=== PATIENT | male | born 1950 | race Caucasian/White ===

== ENCOUNTER 2018-04-03 13:32 | Observation (INO) | payer MEDICARE ==
[2018-04-03 14:03] LABS: #Eosinphils 0.1 thou/uL (0.0-0.7); #Lymphocytes 1.2 thou/uL (1.20-3.40); #Monocytes 0.7 thou/uL (0.11-0.59); #Neutrophils 6.3 thou/uL (1.40-6.50); %Basophils 0.3 % (0.0-1.0); %Eosinophils 0.9 % (0.0-10.0); %Lymphocytes 14.7 % (21.0-51.0); %Monocytes 8.1 % (0.0-10.0); Hemoglobin 17.4 g/dL (14.0-18.0); Mean Corpuscular Hemoglobin 30.9 pg (27.0-31.0); Mean Corpuscular Volume 90.8 fL (78.0-98.0); Mean Platelet Volume 8.1 fL (7.4-10.4); Platelet Count 236 thou/uL (130-400); RBC Distribution Width 11.7 % (11.5-14.5); Red Blood Cell (RBC) Count 5.64 mill/uL (4.70-6.10); White Blood Cell (WBC) Count 8.3 thou/uL (4.8-10.8)
--- NOTE | 2018-04-03 14:13 | RAD ---
PORTABLE CHEST 1 VIEW: Date: 04/03/18 Time: 1357 hours HISTORY: Irregular heart rate, new onset atrial fibrillation, and shortness of breath. FINDINGS: The heart size is normal. The lungs are expanded without focal areas of consolidation, pneumothorax, [place] pulmonary edema, or pleural effusions. IMPRESSION: No radiographic evidence of acute cardiopulmonary process. POS: OFF
[2018-04-03 14:26] LABS: ALT (SGPT) 22 U/L (8-55); AST (SGOT) 18 U/L (5-34); Albumin 4.4 g/dL (3.4-4.8); Alkaline Phosphatase 72 U/L (40-150); Anion Gap 17 mmol/L (10-20); BUN (Urea Nitrogen) 14 mg/dL (8.4-25.7); Bilirubin, Total 1.8 mg/dL (0.2-1.2); CK (CPK) 119 U/L (30-200); Calc. Creatinine Clearance 0 mL/min (70-130); Calcium 9.4 mg/dL (7.8-10.44); Carbon Dioxide 22 mmol/L (23-31); Chloride 105 mmol/L (98-107); Estimated GFR-MDRD 61; Globulin 2.9 g/dL (2.4-3.5); Glucose 98 mg/dL (80-115); Potassium 3.9 mmol/L (3.5-5.1); Protein, Total 7.3 g/dL (5.8-8.1); Sodium 140 mmol/L (136-145)
[2018-04-03] MEDS ORDERED: Enoxaparin Sodium 100 MG/ML SYRINGE ONE (15:56)
[2018-04-03] MEDS ORDERED: Enoxaparin Sodium 120 MG/0.8 ML SYRINGE SC SCH (16:15)
[2018-04-03] MEDS ORDERED: Ondansetron ODT 4 MG TAB PO PRN (17:42)
[2018-04-03] MEDS ORDERED: Ondansetron PF 4 MG/2 ML Vial IVP PRN (17:42)
[2018-04-03] MEDS ORDERED: Acetaminophen 325 MG TAB PO PRN (17:42)
[2018-04-03] MEDS ORDERED: Zolpidem Tartrate 5 MG TAB PO PRN (17:42)
[2018-04-03 19:16] VITALS: BMI 31.2
[2018-04-03 19:34] LABS: Troponin I Less than 0.010 ng/mL (< 0.028)
[2018-04-03] MEDS: Metoprolol Tartrate 25 MG TAB PO SCH (20:50)
[2018-04-03] MEDS: Apixaban 5 MG TAB PO SCH (20:50)
[2018-04-03] MEDS ORDERED: Flecainide 50 MG TAB PO SCH (21:15)
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
[2018-04-04] MEDS ORDERED: Flecainide 50 MG TAB PO SCH (09:00)
[2018-04-04] MEDS ORDERED: PROPOFOL 20 ML ONE (09:46)
[2018-04-04] MEDS ORDERED: PROPOFOL 200 MG/20 ML VIAL ONE (10:00)
[2018-04-04] MEDS: Metoprolol Tartrate 25 MG TAB PO SCH (11:51)
[2018-04-04] MEDS: Apixaban 5 MG TAB PO SCH (11:51)
--- NOTE | 2018-04-04 12:23 | PRG ---
DATE OF SERVICE: 04/04/2018 SUBJECTIVE: Mr. Conway is doing well. He is still in atrial fib. He verbalizes no complaints. OBJECTIVE: VITAL SIGNS: Temperature 98.1, blood pressure 103/85. LUNGS: Clear. HEART: Reveals an irregularly irregular rhythm. No murmurs, gallops, or rubs. studies were all negative. IMPRESSION: Atrial fibrillation. PLAN: The plan is to cardiovert him today with Dr. Mendes. If he is successful, discharge later. Job ID: [id number]
[2018-04-04 12:59] VITALS: TEMP 98
[2018-04-04 14:24] VITALS: BP 100/80
--- NOTE | 2018-04-05 21:21 | ECHO ---
DATE OF SERVICE: 04/04/18 PREPROCEDURE DIAGNOSIS: Atrial fibrillation. The Anesthesiology department provided with sedation for the patient. Please see their notes for det ails. After adequate sedation was achieved, transesophageal probe was inserted into the mouth and into the esophagus without issues. Multiplanar views were then obtained. Left ventricle appears to be normal in size with normal wall thickness. Systolic function appears to be normal with estimated EF at 50-55% with no regional wall motion abnormalities. Left atrium is dilated. Left atrial appendage is a large appendage. There is a small flailing mass within the appendage consi stent with a small thrombus. Normal left atrial appendage velocities. Right atrium is mildly dilated. The right ventricle is normal size with normal systolic function. Aortic valve is structurally normal. No stenosis. There is trace aortic insufficiency. Pulmonary valve is structurally normal. No stenosis or regurgitation. Mitral valve is structurally normal. There is moderate mitral regurgitation. Tricuspid valve is structurally normal. There is mild TR. Thoracic aorta is normal caliber with grade I/V atherosclerotic disease. CONCLUSIONS: 1. Normal systolic function, EF at 50-55%. 2. Left atrial enlargement. 3. Trace aortic insufficiency. 4. Moderate mitral regurgitation. 5. Mild tricuspid regurgitation. 6. Left atrial appendage is a large appendage with normal velocities. 7. There is a small flailing mass consistent with a small thrombus.
--- NOTE | 2018-04-09 12:02 | EKG ---
Test Reason : Blood Pressure : / mmHG Vent. Rate : 115 BPM Atrial Rate : 138 BPM P-R Int : 000 ms QRS Dur : 094 ms QT Int : 342 ms P-R-T Axes : 000 -53 041 degrees QTc Int : 473 ms Atrial fibrillation with rapid ventricular response Left axis deviation Inferior infarct , age undetermined Abnormal ECG Confirmed by ANAI MARI D.O. ([id number]), purchase request editor ROHIT MARTÍNEZ ([id number]) on 04/09/2018 12:02:21 PM Referred By: Confirmed By:ANAI MARI D.O.
== END 2018-04-04 14:44 | disposition home or self-care (01) ==
LOC: ERS 13:32 → ERHOLD 15:05 → 2SW 18:44
PROVIDERS: ADMIT Family Medicine; ATTEND Family Medicine
PROC: B24BZZ4 Ultrasonography of Heart with Aorta, Transesophageal (ICD-10-PCS; principal; 2018-04-04)
DX: I48.91 Unspecified atrial fibrillation (principal); I10 Essential (primary) hypertension; I08.1 Rheumatic disorders of both mitral and tricuspid valves; Z79.899 Other long term (current) drug therapy; Z98.890 Other specified postprocedural states
CPT/HCPCS: 71045; 80053; 82550; 84484 ×2; 85025; 90662; 92960; 93005; 93312; 96361; 96372; 96374; 99285; G0008; G0378 ×2; 36415; 90471; J1650; J2704

== ENCOUNTER 2018-05-01 07:33 | Outpatient (CLI) | payer MEDICARE ==
[2018-05-01 09:43] LABS: #Eosinphils 0.1 thou/uL (0.0-0.7); #Lymphocytes 1.3 thou/uL (1.20-3.40); #Monocytes 0.7 thou/uL (0.11-0.59); #Neutrophils 4.5 thou/uL (1.40-6.50); %Basophils 0.5 % (0.0-1.0); %Eosinophils 1.8 % (0.0-10.0); %Lymphocytes 19.3 % (21.0-51.0); %Monocytes 9.9 % (0.0-10.0); %Neutrophils 68.5 % (42.0-75.0); Hemoglobin 16.2 g/dL (14.0-18.0); Mean Corpuscular HGB CONC 34.4 g/dL (32.0-36.0); Mean Corpuscular Hemoglobin 30.9 pg (27.0-31.0); Mean Corpuscular Volume 89.8 fL (78.0-98.0); Mean Platelet Volume 8.1 fL (7.4-10.4); Platelet Count 220 thou/uL (130-400); RBC Distribution Width 11.8 % (11.5-14.5); Red Blood Cell (RBC) Count 5.23 mill/uL (4.70-6.10); White Blood Cell (WBC) Count 6.6 thou/uL (4.8-10.8)
[2018-05-01 09:49] LABS: INR-International Normal Ratio 1.2; Prothrombin Time 14.9 SEC (12.0-14.7)
[2018-05-01 09:50] LABS: PTT 34.2 SEC (22.9-36.1)
[2018-05-01 10:01] LABS: Anion Gap 13 mmol/L (10-20); BUN (Urea Nitrogen) 18 mg/dL (8.4-25.7); Calc. Creatinine Clearance 0 mL/min (70-130); Calcium 9.4 mg/dL (7.8-10.44); Carbon Dioxide 23 mmol/L (23-31); Chloride 107 mmol/L (98-107); Estimated GFR-MDRD 71; Glucose 88 mg/dL (80-115); Potassium 4.3 mmol/L (3.5-5.1); Sodium 139 mmol/L (136-145)
--- NOTE | 2018-05-03 20:48 | EKG ---
Test Reason : Blood Pressure : / mmHG Vent. Rate : 057 BPM Atrial Rate : 228 BPM P-R Int : 000 ms QRS Dur : 100 ms QT Int : 434 ms P-R-T Axes : -77 -37 048 degrees QTc Int : 422 ms Atrial flutter with 4:1 A-V conduction Left axis deviation Inferior infarct , age undetermined Anterior infarct , age undetermined Abnormal ECG When compared with ECG of 03-APR-2018 14:32, Atrial flutter has replaced Atrial fibrillation Anterior infarct is now Present ST elevation now present in Inferior leads Confirmed by David TIMMONS ([id number]) on 05/03/2018 8:47:41 PM Referred By: AVI Confirmed By:David TIMMONS
== END 2018-05-01 07:34 | disposition home or self-care (01) ==
LOC: LABBT 07:33
PROVIDERS: ATTEND Internal Medicine Cardiovascular Disease
DX: Z01.818 Encounter for other preprocedural examination (principal); I48.92 Unspecified atrial flutter
CPT/HCPCS: 80048; 85025; 85610; 85730; 93005; 93010

== ENCOUNTER 2018-05-13 10:23 | Day surgery (SDC) | payer MEDICARE ==
[2018-05-13] MEDS ORDERED: PROPOFOL 40 ML ONE (12:50)
[2018-05-13] MEDS ORDERED: PROPOFOL 200 MG/20 ML VIAL ONE (13:53)
--- NOTE | 2018-05-13 15:33 | RAD ---
CHEST ONE VIEW PORTABLE: Comparison: 04-03-18 History: Cough. FINDINGS: Heart size and mediastinum are within normal limits. The lungs are clear of any infiltrative process. No significant bony findings are seen. IMPRESSION: No active intrathoracic disease. POS: TPC
--- NOTE | 2018-05-13 20:23 | EKG ---
Test Reason : POST TARAH/CARDIOVERSI Blood Pressure : / mmHG Vent. Rate : 062 BPM Atrial Rate : 062 BPM P-R Int : 230 ms QRS Dur : 112 ms QT Int : 450 ms P-R-T Axes : 063 -50 -04 degrees QTc Int : 456 ms Sinus rhythm with 1st degree A-V block Left axis deviation Inferior infarct (cited on or before 01-MAY-2018) Abnormal ECG When compared with ECG of 01-MAY-2018 09:24, Sinus rhythm has replaced Atrial flutter Criteria for Anterior infarct are no longer Present Serial changes of evolving Inferior infarct Present Confirmed by SAMSON KHANNA, DR. Jimenez ([id number]) on 05/13/2018 8:23:04 PM Referred By: AVI Confirmed By:DR. Barbara DAVIES MD
--- NOTE | 2018-05-16 09:43 | OP ---
CARDIOLOGY PROCEDURE NOTE: Date: 05/13/18 PROCEDURE PERFORMED: Cardioversion. SUMMARY: Mr. Conway is a pleasant 68-year-old gentleman who comes to the outpatient area for a TARAH and cardiove rsion. Please see TARAH for further details. After adequate sedation was achieved by the anesthesiology department, one single AICD shock at 150 j oules synchronized was delivered successfully, converting him from atrial flutter into sinus rhythm. The patient tolerated the procedure well. RECOMMENDATIONS: 1. Continue full anticoagulation and flecainide. 2. Follow-up in the office in 1 month. 3. Patient may be discharged home.
--- NOTE | 2018-05-16 09:46 | ECHO ---
CARDIOLOGY PROCEDURE NOTE: Date: 05/13/18 PROCEDURE: Transesophageal echocardiogram. DETAILS: Anesthesiology department provided sedation for the patient. Please see their notes for details. After adequate sedation was achieved, the transesophageal probe was inserted into the mouth and into the esophagus, and multiplanar views were then obtained. FINDINGS: Left ventricle is normal size. Ejection fraction 50-55%. Left atrial appendage is a large appendage, widely patent, with reduced velocities. No evidence of ma ss or thrombus. The previously seen thrombus is no longer seen. CONCLUSIONS: 1. Normal left ventricular systolic function. 2. Large left atrial appendage without any evidence of mass or thrombus. The previously seen thrombu s is not seen.
== END 2018-05-13 16:10 | disposition home or self-care (01) ==
LOC: CCL 10:23
PROVIDERS: ATTEND Internal Medicine Cardiovascular Disease
PROC: 5A2204Z Restoration of Cardiac Rhythm, Single (ICD-10-PCS; principal; 2018-05-13)
PROC: B24BZZ4 Ultrasonography of Heart with Aorta, Transesophageal (ICD-10-PCS; 2018-05-13)
DX: I48.3 Typical atrial flutter (principal); I48.91 Unspecified atrial fibrillation; I10 Essential (primary) hypertension; Z79.01 Long term (current) use of anticoagulants; Z79.899 Other long term (current) drug therapy; Z87.891 Personal history of nicotine dependence
CPT/HCPCS: 71045; 92960; 93005; 93010; 93312; J2704

== ENCOUNTER 2019-11-11 12:45 | Outpatient (CLI) | payer MEDICARE ==
--- NOTE | 2019-11-11 14:34 | CT ---
CTA CHEST WITH CONTRAST: Date: 11/11/2019 Axial tomograms obtained following angio protocol with multiplanar reconstruction and 3D postprocessi ng. INDICATION: Ascending aortic aneurysm. FINDINGS: Thoracic aorta shows no evidence of dissection. Thoracic aortic measurements given below. Sinus of Valsalva: 4.7 cm, increased for age and sex. Sinotubular: 3.2 cm, upper normal for sex. Ascending thoracic aorta: Up to 4.2 cm, mildly aneurysmal. Upper descending thoracic aorta: 2.8 cm, mildly aneurysmal. Lower descending thoracic aorta: 2.8 cm, upper normal. There is an aberrant right subclavian artery noted passing posterior to the esophagus. Pulmonary arteries are opacified and there is no evidence of pulmonary embolus. The lung casper are clear of infiltrate. No effusion. There are chronic lung parenchymal changes. Str anding in the posterior lung bases. No evidence of pulmonary mass or nodule. The mediastinum is unremarkable without adenopathy. There is a mass projecting from the inferior left lobe of the thyroid which extends substernally. Thi s thyroid substernal mass measures up to 3.3 cm AP dimension. This is moderately suspicious. Recommen d further evaluation with ultrasound and consider biopsy. Images through the upper abdomen unremarkable with mild to moderate degenerative changes in the spine . IMPRESSION: 1. Mild aneurysmal dilatation of the ascending thoracic aorta. Aortic measurements are given above. 2. Aberrant right subclavian artery. 3. Mass extending from the inferior left lobe of thyroid which projects substernally is suspicious. Recommend further investigation. 4. Chronic lung parenchymal changes. POS: AH
[2019-11-11] MEDS ORDERED: Iopamidol-370 76% 500 ML 1 ML ONE (15:43)
== END 2019-11-11 12:46 | disposition home or self-care (01) ==
LOC: BICCT 12:45
PROVIDERS: ATTEND Internal Medicine Cardiovascular Disease
DX: I71.2 Thoracic aortic aneurysm, without rupture (principal); I77.810 Thoracic aortic ectasia; E07.9 Disorder of thyroid, unspecified
CPT/HCPCS: 71275; Q9967

== ENCOUNTER 2019-12-19 11:24 | Outpatient (CLI) | payer MEDICARE, OTHER ==
[2019-12-20 12:22] LABS: SARS-CoV-2 MS2 Positive; SARS-CoV-2 N Gene Negative; SARS-CoV-2 S Gene Negative; SARS-CoV-2 by NAA Not Detected (NotDetected); SARS-CoV-2 orf1ab Negative
== END 2019-12-19 11:25 | disposition home or self-care (01) ==
LOC: LABSCS 11:24
PROVIDERS: ATTEND Specialist
DX: E04.1 Nontoxic single thyroid nodule (principal); Z20.828 Contact with and (suspected) exposure to other viral communicable diseases
CPT/HCPCS: 87635; U0003

== ENCOUNTER 2019-12-24 12:37 | Day surgery (SDC) | payer MEDICARE ==
[2019-12-24] MEDS ORDERED: Sodium Bicarbonate 2.5 MEQ/5 ML VIAL ONE (13:04)
[2019-12-24] MEDS ORDERED: Lidocaine 1% PF 5 ML VIAL ONE (13:04)
[2019-12-24 14:44] VITALS: BP 126/84; TEMP 97.7; BMI 30.8
--- NOTE | 2019-12-24 15:13 | ULT ---
Sonographic guided FNA left thyroid lobe mass HISTORY: Thyroid mass. FINDINGS: After explaining the procedure and answering all questions, large heterogeneous mass at the inferior pole of the left thyroid lobe was again visualized. Sterile technique, buffered local anesthesia, sonographic guidance, and a medial approach were used t o carefully advance the tip of a 25-gauge needle into the large mass at the inferior aspect left thyroid lobe. FNA sample was obtained. A total of 4 passes made. Tissue submitted to pathology for processing. Agent tolerated the procedure well and was dismissed in good condition. IMPRESSION : Technically successful sonographic guided FNA left thyroid lobe mass. Pathology is pending.
== END 2019-12-24 13:50 | disposition home or self-care (01) ==
LOC: ULT 12:37
PROVIDERS: ATTEND Specialist
PROC: 0GBG3ZX Excision of Left Thyroid Gland Lobe, Percutaneous Approach, Diagnostic (ICD-10-PCS; principal; 2019-12-24)
DX: E04.1 Nontoxic single thyroid nodule (principal); I10 Essential (primary) hypertension; I48.91 Unspecified atrial fibrillation; Z87.891 Personal history of nicotine dependence; Z79.01 Long term (current) use of anticoagulants; Z79.899 Other long term (current) drug therapy
CPT/HCPCS: 60100; 76942; 88173

== ENCOUNTER 2020-01-09 06:47 | Outpatient (CLI) | payer MEDICARE, OTHER ==
[2020-01-09 10:26] LABS: #Eosinphils 0.1 thou/uL (0.0-0.7); #Lymphocytes 1.3 thou/uL (1.20-3.40); #Monocytes 0.4 thou/uL (0.11-0.59); #Neutrophils 3.1 thou/uL (1.40-6.50); %Basophils 0.2 % (0.0-1.0); %Eosinophils 1.2 % (0.0-10.0); %Lymphocytes 26.5 % (21.0-51.0); %Monocytes 8.2 % (0.0-10.0); %Neutrophils 63.9 % (42.0-75.0); Hemoglobin 15.6 g/dL (14.0-18.0); Mean Corpuscular HGB CONC 33.7 g/dL (32.0-36.0); Mean Corpuscular Hemoglobin 31.3 pg (27.0-31.0); Mean Corpuscular Volume 92.7 fL (78.0-98.0); Mean Platelet Volume 8.7 fL (7.4-10.4); Platelet Count 209 thou/uL (130-400); RBC Distribution Width 11.7 % (11.5-14.5); Red Blood Cell (RBC) Count 4.99 mill/uL (4.70-6.10); White Blood Cell (WBC) Count 4.8 thou/uL (4.8-10.8)
[2020-01-09 11:00] LABS: Anion Gap 17 mmol/L (10-20); BUN (Urea Nitrogen) 17 mg/dL (8.4-25.7); Calc. Creatinine Clearance 0 mL/min (70-130); Calcium 8.7 mg/dL (7.8-10.44); Carbon Dioxide 21 mmol/L (23-31); Chloride 108 mmol/L (98-107); Estimated GFR-MDRD 86; Glucose 90 mg/dL (80-115); Potassium 5.2 mmol/L (3.5-5.1); Sodium 141 mmol/L (136-145)
[2020-01-09 17:49] LABS: SARS-CoV-2 MS2 Positive; SARS-CoV-2 N Gene Negative; SARS-CoV-2 S Gene Negative; SARS-CoV-2 by NAA Not Detected (NotDetected); SARS-CoV-2 orf1ab Negative
== END 2020-01-09 06:48 | disposition home or self-care (01) ==
LOC: LABBT 06:47
PROVIDERS: ATTEND Surgery
DX: Z01.812 Encounter for preprocedural laboratory examination (principal); Z20.828 Contact with and (suspected) exposure to other viral communicable diseases; K40.90 Unilateral inguinal hernia, without obstruction or gangrene, not specified as recurrent; E04.1 Nontoxic single thyroid nodule
CPT/HCPCS: 80048; 85025; U0003; 87635

== ENCOUNTER 2020-01-14 09:57 | Day surgery (SDC) | payer MEDICARE ==
[2020-01-12 10:41] VITALS: BMI 31.4
[2020-01-14] MEDS ORDERED: Bupivacaine/Epinephrine 0.25% 30 ML VIAL ONE (10:33)
[2020-01-14] MEDS ORDERED: Bupivacaine PF 0.5% 30 ML VIAL ONE (10:33)
[2020-01-14] MEDS ORDERED: Fentanyl 100 MCG/2 ML VIAL ONE (10:35)
[2020-01-14] MEDS ORDERED: Famotidine/PF 20 mg/2ml Vial ONE (10:42)
[2020-01-14] MEDS ORDERED: EPHEDRINE 25 MG/5 ML SYRINGE ONE (10:52)
[2020-01-14] MEDS ORDERED: Lidocaine 1% PF 5 ML VIAL ONE (10:52)
[2020-01-14] MEDS ORDERED: Glycopyrrolate 0.2 MG/ML 5 ML SYRINGE ONE (10:52)
[2020-01-14] MEDS ORDERED: Dexamethasone 20 MG/5 ML VIAL ONE (10:52)
[2020-01-14] MEDS ORDERED: PROPOFOL 200 MG/20 ML VIAL ONE (10:52)
[2020-01-14] MEDS ORDERED: Ondansetron PF 4 MG/2 ML Vial ONE (10:52)
--- NOTE | 2020-01-14 15:13 | EKG ---
Test Reason : PREOP Blood Pressure : / mmHG Vent. Rate : 051 BPM Atrial Rate : 051 BPM P-R Int : 244 ms QRS Dur : 104 ms QT Int : 486 ms P-R-T Axes : 022 -44 019 degrees QTc Int : 447 ms Sinus bradycardia with marked sinus arrhythmia with 1st degree A-V block Premature atrial complexes Non-specific intra-ventricular conduction delay Left axis deviation Nonspecific ST abnormality Abnormal ECG Confirmed by PAPO VALENTINE ([id number]) on 01/14/2020 3:12:40 PM Referred By: TERE Confirmed By:PAPO VALENTINE
--- NOTE | 2020-01-15 11:11 | OP ---
DATE OF PROCEDURE: 01/14/2020 PREOPERATIVE DIAGNOSIS: Right inguinal hernia. POSTOPERATIVE DIAGNOSIS: Right inguinal hernia. PROCEDURE PERFORMED: Right inguinal hernia repair with mesh, PHS extended. ANESTHESIA: General. ESTIMATED BLOOD LOSS: Minimal. COMPLICATIONS: None. DESCRIPTION OF PROCEDURE: The patient was taken to the operating room and laid supine on the operating room table. After general anesthetic was obtained, the abdomen and right groin were shaved, prepped, and draped in a sterile fashion. An oblique incision was made above the pubic tubercle and the right lower quadrant. Cautery was used to dissect down through Rasta's to expose the external oblique. External oblique fibers opened along the course of the external ring. The cord structures were mobilized on the pubic tubercle using a Nathalia drain. Dissection superomedially on the cord showed there to be no indirect hernia sac. There was a direct defect that was dissected away from the cord structures laterally. The preperitoneal space was bluntly entered and dissected using a wet unraveled Ray-Loli. The PHS extended mesh was brought into the sterile field. The underlay was placed in the preperitoneal space. The fibers were laid out in the preperitoneal space behind the abdominal wall. The overlay was laid in the inguinal canal. The overlay was cut laterally to incorporate the internal ring. The overlay was sewn distally to the pubic tubercle, medially to the transverse arch, laterally to the shelving edge of inguinal ligament. Additional sutures were used to reapproximate the two edges of cut mesh to the inguinal ligament as well to reform the internal ring. Sutures placed on the transverse arch. The extra mesh was tucked back into the external oblique proximally. The wound was irrigated. Local anesthetic was applied. The wound was closed using 3-0 Vicryl, 4-0 Monocryl, and Dermabond. Tunneled cath for postoperative pain control had been left on top of the mesh, connected to an ON-Q pain pump. The patient was sent to Recovery in stable condition. All instrument counts, needle counts, and lap counts were correct. Job ID: [id number]
== END 2020-01-14 14:04 | disposition home or self-care (01) ==
LOC: SDC 09:57
PROVIDERS: ATTEND Surgery
PROC: 0YU50JZ Supplement Right Inguinal Region with Synthetic Substitute, Open Approach (ICD-10-PCS; principal; 2020-01-14)
DX: K40.90 Unilateral inguinal hernia, without obstruction or gangrene, not specified as recurrent (principal); I48.91 Unspecified atrial fibrillation; I10 Essential (primary) hypertension; Z79.899 Other long term (current) drug therapy
CPT/HCPCS: 49505; 93005; C1781; 93010; J0690; J1100; J2405; J2704; J3010; S0020; S0028

== ENCOUNTER 2020-01-16 11:18 | Outpatient (CLI) | payer MEDICARE, OTHER ==
[2020-01-16 19:48] LABS: SARS-CoV-2 MS2 Positive; SARS-CoV-2 N Gene Negative; SARS-CoV-2 S Gene Negative; SARS-CoV-2 by NAA Not Detected (NotDetected); SARS-CoV-2 orf1ab Negative
== END 2020-01-16 11:19 | disposition home or self-care (01) ==
LOC: LABBT 11:18
PROVIDERS: ATTEND Specialist
DX: Z20.828 Contact with and (suspected) exposure to other viral communicable diseases (principal)
CPT/HCPCS: 87635; U0003

== ENCOUNTER 2020-01-19 12:29 | Day surgery (SDC) | payer MEDICARE ==
[2020-01-16 08:33] VITALS: BMI 30.8
[~2020-01-19 12:29] MED LIST: FLU VACC QS2020-21(65YR UP)/PF 240 MCG/0.7 ML SYRINGE IM ONE
[2020-01-19] MEDS ORDERED: Sodium Bicarbonate 2.5 MEQ/5 ML VIAL ONE (13:09)
[2020-01-19] MEDS ORDERED: Lidocaine 1% PF 5 ML VIAL ONE (13:09)
[2020-01-19 14:29] VITALS: BP 122/80; TEMP 95.6
--- NOTE | 2020-01-19 15:02 | ULT ---
Ultrasound-guided FNA left thyroid lobe mass HISTORY: Left thyroid mass. FINDINGS: After explaining the procedure and answering all questions, the large heterogeneous mass at the inferior pole of the left thyroid lobe was again visualized. Sterile technique, buffered local anesthesia, sonographic guidance, and a lateral approach were used to carefully advance the tip of a 25-gauge needle into the mass. [id number] motion was used to obtain FNA specimen. A total of 8 specimens were obtained and submitted to Dr. Perkins from pathology who confirmed specim en adequacy. Postprocedure imaging shows no evidence of complication. Patient tolerated the procedure well and was dismissed in good condition. IMPRESSION : Technically successful sonographic guided FNA left thyroid lobe mass. Pathology is pending.
== END 2020-01-19 14:15 | disposition home or self-care (01) ==
LOC: ULT 12:29
PROVIDERS: ATTEND Specialist
PROC: 0GBG3ZX Excision of Left Thyroid Gland Lobe, Percutaneous Approach, Diagnostic (ICD-10-PCS; principal; 2020-01-19)
DX: E04.1 Nontoxic single thyroid nodule (principal); I10 Essential (primary) hypertension; I48.91 Unspecified atrial fibrillation; Z79.899 Other long term (current) drug therapy; Z87.891 Personal history of nicotine dependence
CPT/HCPCS: 60100; 76942; 88172; 88173; 88177

== ENCOUNTER 2020-07-06 14:51 | Outpatient (CLI) | payer MEDICARE | END 2020-07-06 14:52 | disposition home or self-care (01) | LOC: BICRAD 14:51 | PROVIDERS: ATTEND Family Medicine | DX: M54.2 Cervicalgia (principal); M47.812 Spondylosis without myelopathy or radiculopathy, cervical region | CPT/HCPCS: 72040 ==

== ENCOUNTER 2020-08-02 12:03 | Outpatient (CLI) | payer MEDICARE | END 2020-08-02 12:04 | disposition home or self-care (01) | LOC: BICMRI 12:03 | PROVIDERS: ATTEND Anesthesiology Pain Medicine | DX: M48.02 Spinal stenosis, cervical region (principal); M50.30 Other cervical disc degeneration, unspecified cervical region | CPT/HCPCS: 72141 ==

== ENCOUNTER 2021-05-06 11:12 | Outpatient (CLI) | payer MEDICARE ==
[2021-05-06 12:35] LABS: Hemoglobin 15.7 g/dL (13.5-17.5); Mean Corpuscular HGB CONC 32.8 g/dL (32.0-36.0); Mean Corpuscular Hemoglobin 29.8 pg (27.0-33.0); Mean Corpuscular Volume 90.9 fl (81.2-95.1); Mean Platelet Volume 10.8 fl (7.4-10.4); Platelet Count 227 10x3/uL (150-450); Red Blood Cell (RBC) Count 5.27 10x6/uL (4.32-5.72); White Blood Cell (WBC) Count 7.7 10x3/uL (3.5-10.5)
[2021-05-06 12:45] LABS: PTT 31.5 sec (22.0-33.0); Prothrombin Time 10.9 sec (9.5-12.1)
[2021-05-06 12:46] LABS: Anion Gap 14 mmol/L (10-20); BUN (Urea Nitrogen) 16 mg/dL (8.4-25.7); Calc. Creatinine Clearance 0 mL/min (70-130); Calcium 9.5 mg/dL (7.8-10.44); Carbon Dioxide 26 mmol/L (23-31); Chloride 106 mmol/L (98-107); Glucose 91 mg/dL (83-110); Potassium 4.6 mmol/L (3.5-5.1); Sodium 141 mmol/L (136-145)
[2021-05-06 23:48] LABS: SARS-CoV-2 PCR by NAA Not Detected (NotDetected)
== END 2021-05-06 11:13 | disposition home or self-care (01) ==
LOC: LABBT 11:12
PROVIDERS: ATTEND Internal Medicine Cardiovascular Disease
DX: Z01.812 Encounter for preprocedural laboratory examination (principal); I48.19 Other persistent atrial fibrillation; Z20.822 Contact with and (suspected) exposure to COVID-19
CPT/HCPCS: 80048; 85027; 85610; 85730; U0003; U0005

== ENCOUNTER 2021-05-11 09:02 | Day surgery (SDC) | payer MEDICARE ==
[2021-05-06 13:44] VITALS: BMI 32.0
[2021-05-11] MEDS ORDERED: Heparin 25,000 units/D5W 500 ML ONE (09:34)
[2021-05-11] MEDS ORDERED: Heparin 10,000 UNITS/ 10 ML VIAL ONE ×2 (09:34→12:15)
[2021-05-11] MEDS ORDERED: Isoproterenol 0.2 MG/1 ML AMP ONE (09:35)
[2021-05-11] MEDS ORDERED: Fentanyl 100 MCG/2 ML VIAL ONE (10:08)
[2021-05-11] MEDS ORDERED: Dexmedetomidine 200 MCG/2 ML VIAL ONE (10:08)
[2021-05-11] MEDS ORDERED: Potassium Chloride 20 MEQ TAB PO PRN (10:14)
[2021-05-11] MEDS ORDERED: Furosemide 40 MG TAB PO PRN (10:14)
[2021-05-11] MEDS ORDERED: Dexamethasone 20 MG/5 ML VIAL ONE (10:20)
[2021-05-11] MEDS ORDERED: PROPOFOL 200 MG/20 ML VIAL ONE (10:20)
[2021-05-11] MEDS ORDERED: ePHEDrine 50 MG/ML VIAL ONE (10:20)
[2021-05-11] MEDS ORDERED: Ondansetron PF 4 MG/2 ML Vial ONE ×2 (10:20→17:38)
[2021-05-11] MEDS ORDERED: PHENYLEPHRINE-NS 100 MCG/ML 10 ML SYRINGE ONE (10:20)
[2021-05-11] MEDS ORDERED: Rocuronium Bromide 10 MG/ML (10ML VIAL) ONE (10:20)
[2021-05-11] MEDS ORDERED: Lidocaine 1% PF 5 ML VIAL ONE (10:20)
[2021-05-11] MEDS ORDERED: Sucralfate 1 GM TAB PO SCH (11:30)
[2021-05-11] MEDS ORDERED: Rocuronium Bromide 50 MG/5 ML VIAL ONE (12:18)
[2021-05-11] MEDS ORDERED: Phenylephrine 10 MG/ML VIAL ONE (13:05)
== END 2021-05-11 19:25 | disposition home or self-care (01) ==
LOC: CCL 09:02
PROVIDERS: ATTEND Internal Medicine Cardiovascular Disease
PROC: 02583ZZ Destruction of Conduction Mechanism, Percutaneous Approach (ICD-10-PCS; principal; 2021-05-11)
PROC: 02K83ZZ Map Conduction Mechanism, Percutaneous Approach (ICD-10-PCS; 2021-05-11)
PROC: 4A023FZ Measurement of Cardiac Rhythm, Percutaneous Approach (ICD-10-PCS; 2021-05-11)
PROC: 4A0234Z Measurement of Cardiac Electrical Activity, Percutaneous Approach (ICD-10-PCS; 2021-05-11)
DX: I48.19 Other persistent atrial fibrillation (principal); I48.3 Typical atrial flutter; I08.3 Combined rheumatic disorders of mitral, aortic and tricuspid valves; I11.9 Hypertensive heart disease without heart failure; Z87.891 Personal history of nicotine dependence; Z79.01 Long term (current) use of anticoagulants; Z79.899 Other long term (current) drug therapy
CPT/HCPCS: 85347; 93005; 93613; 93622; 93623; 93655; 93656; 93657; 93662; C1732; C1759; C1776; J1100; J1644; J2370; J2405; J2704; J3010; J3490

== ENCOUNTER 2021-05-13 02:33 | Emergency (ER) | payer MEDICARE ==
[2021-05-13 03:25] LABS: #Lymphocytes 0.7 thou/uL (1.20-3.40); #Monocytes 0.9 thou/uL (0.11-0.59); #Neutrophils 8.6 thou/uL (1.40-6.50); %Basophils 0.2 % (0.0-1.0); %Eosinophils 0.2 % (0.0-10.0); %Lymphocytes 7.2 % (21.0-51.0); %Neutrophils 83.4 % (42.0-75.0); Hemoglobin 14.1 g/dL (14.0-18.0); Mean Corpuscular HGB CONC 33.5 g/dL (32.0-36.0); Mean Corpuscular Hemoglobin 31.1 pg (27.0-31.0); Mean Corpuscular Volume 92.7 fL (78.0-98.0); Platelet Count 172 thou/uL (130-400); RBC Distribution Width 12.2 % (11.5-14.5); Red Blood Cell (RBC) Count 4.54 mill/uL (4.70-6.10); White Blood Cell (WBC) Count 10.3 thou/uL (4.8-10.8)
[2021-05-13 03:39] LABS: ALT (SGPT) 44 U/L (8-55); AST (SGOT) 62 U/L (5-34); Alkaline Phosphatase 64 U/L (40-110); Anion Gap 12 mmol/L (10-20); BUN (Urea Nitrogen) 19 mg/dL (8.4-25.7); Bilirubin, Total 1.4 mg/dL (0.2-1.2); Calc. Creatinine Clearance 0 mL/min (70-130); Calcium 8.6 mg/dL (7.8-10.44); Carbon Dioxide 23 mmol/L (23-31); Chloride 108 mmol/L (98-107); Globulin 2.5 g/dL (2.4-3.5); Glucose 123 mg/dL (83-110); Protein, Total 6.5 g/dL (5.8-8.1); Sodium 139 mmol/L (136-145)
[2021-05-13 04:03] LABS: CKMB 4.8 ng/mL (0-6.6)
[2021-05-13 05:58] LABS: Critical Call Chem Troponin I RESULT DECREASING; Troponin I 2.608 ng/mL (< 0.028)
== END 2021-05-13 06:22 | disposition home or self-care (01) ==
LOC: ERS 02:33
DX: R07.89 Other chest pain (principal); I10 Essential (primary) hypertension
CPT/HCPCS: 36415; 71045; 80053; 82553; 84484; 85025; 85379; 93005

== ENCOUNTER 2021-05-25 14:09 | Inpatient (IN) | payer MEDICARE ==
[2021-05-25] MEDS ORDERED: Lidocaine 1% MPF 2 ML VIAL FS PRN (15:11)
[2021-05-25 15:51] VITALS: BMI 31.8
[2021-05-25 16:18] LABS: #Eosinphils 0.1 thou/uL (0.0-0.7); #Lymphocytes 1.3 thou/uL (1.20-3.40); #Monocytes 0.6 thou/uL (0.11-0.59); #Neutrophils 5.2 thou/uL (1.40-6.50); %Basophils 0.3 % (0.0-1.0); %Eosinophils 0.8 % (0.0-10.0); %Lymphocytes 17.9 % (21.0-51.0); %Monocytes 7.9 % (0.0-10.0); %Neutrophils 73.1 % (42.0-75.0); Hemoglobin 15.9 g/dL (14.0-18.0); Mean Corpuscular HGB CONC 31.5 g/dL (32.0-36.0); Mean Corpuscular Hemoglobin 28.9 pg (27.0-31.0); Mean Corpuscular Volume 91.8 fL (78.0-98.0); Mean Platelet Volume 7.5 fL (7.4-10.4); Platelet Count 353 thou/uL (130-400); RBC Distribution Width 11.9 % (11.5-14.5); Red Blood Cell (RBC) Count 5.49 mill/uL (4.70-6.10); White Blood Cell (WBC) Count 7.1 thou/uL (4.8-10.8)
[2021-05-25 16:42] LABS: Anion Gap 13 mmol/L (10-20); BUN (Urea Nitrogen) 19 mg/dL (8.4-25.7); Calc. Creatinine Clearance 96 mL/min (70-130); Calcium 9.9 mg/dL (7.8-10.44); Carbon Dioxide 26 mmol/L (23-31); Chloride 105 mmol/L (98-107); Glucose 96 mg/dL (83-110); Magnesium 2.2 mg/dL (1.6-2.6); Potassium 4.1 mmol/L (3.5-5.1); Sodium 140 mmol/L (136-145)
[2021-05-25] MEDS ORDERED: [UNRECOGNIZED DRUG - REMARK] IVPB PRN (18:16)
[2021-05-25] MEDS ORDERED: Dofetilide 0.25 MG CAP PO SCH (21:00)
[2021-05-25] MEDS: Apixaban 5 MG TAB PO SCH (21:09)
[2021-05-25] MEDS: Dofetilide 0.125 MG CAP PO SCH (21:09)
[2021-05-25] MEDS ORDERED: Zolpidem Tartrate 5 MG TAB PO SCH (23:45)
[2021-05-26 04:59] LABS: #Eosinphils 0.1 thou/uL (0.0-0.7); #Lymphocytes 1.6 thou/uL (1.20-3.40); #Monocytes 0.5 thou/uL (0.11-0.59); #Neutrophils 4.1 thou/uL (1.40-6.50); %Basophils 0.6 % (0.0-1.0); %Eosinophils 1.2 % (0.0-10.0); %Lymphocytes 25.4 % (21.0-51.0); %Monocytes 7.4 % (0.0-10.0); %Neutrophils 65.5 % (42.0-75.0); Hemoglobin 14.9 g/dL (14.0-18.0); Mean Corpuscular HGB CONC 34.4 g/dL (32.0-36.0); Mean Corpuscular Hemoglobin 31.4 pg (27.0-31.0); Mean Corpuscular Volume 91.3 fL (78.0-98.0); Mean Platelet Volume 7.7 fL (7.4-10.4); Platelet Count 254 thou/uL (130-400); RBC Distribution Width 11.8 % (11.5-14.5); Red Blood Cell (RBC) Count 4.75 mill/uL (4.70-6.10); White Blood Cell (WBC) Count 6.3 thou/uL (4.8-10.8)
[2021-05-26 05:20] LABS: Anion Gap 12 mmol/L (10-20); BUN (Urea Nitrogen) 18 mg/dL (8.4-25.7); Calc. Creatinine Clearance 118 mL/min (70-130); Calcium 8.9 mg/dL (7.8-10.44); Carbon Dioxide 22 mmol/L (23-31); Chloride 108 mmol/L (98-107); Glucose 100 mg/dL (83-110); Magnesium 1.9 mg/dL (1.6-2.6); Potassium 3.9 mmol/L (3.5-5.1); Sodium 138 mmol/L (136-145)
[2021-05-26] MEDS ORDERED: Electrolyte Replacement Protocol 1 EACH FS PRN (08:00)
[2021-05-26] MEDS ORDERED: Magnesium 2 GM/50 ML 2 GM in Premix Bag 1 BAG IVPB SCH (08:15)
[2021-05-26] MEDS: Apixaban 5 MG TAB PO SCH ×2 (08:54→19:59)
[2021-05-26] MEDS: Dofetilide 0.125 MG CAP PO SCH ×2 (08:54→20:00)
[2021-05-26] MEDS: Metoprolol Tartrate 25 MG TAB PO SCH (08:54)
[2021-05-26] MEDS: Losartan 25 MG TAB PO SCH (08:54)
[2021-05-26 11:43] LABS: SARS-CoV-2 PCR by NAA Not Detected (NotDetected)
[2021-05-26] MEDS ORDERED: Zolpidem Tartrate 5 MG TAB PO PRN (12:44)
[2021-05-27 04:50] LABS: #Eosinphils 0.1 thou/uL (0.0-0.7); #Lymphocytes 1.5 thou/uL (1.20-3.40); #Monocytes 0.6 thou/uL (0.11-0.59); #Neutrophils 3.6 thou/uL (1.40-6.50); %Basophils 0.7 % (0.0-1.0); %Lymphocytes 26.1 % (21.0-51.0); %Monocytes 10.6 % (0.0-10.0); %Neutrophils 61.5 % (42.0-75.0); Hemoglobin 13.8 g/dL (14.0-18.0); Mean Corpuscular HGB CONC 32.7 g/dL (32.0-36.0); Mean Corpuscular Hemoglobin 30.6 pg (27.0-31.0); Mean Corpuscular Volume 93.7 fL (78.0-98.0); Mean Platelet Volume 7.6 fL (7.4-10.4); Platelet Count 262 thou/uL (130-400); RBC Distribution Width 11.7 % (11.5-14.5); Red Blood Cell (RBC) Count 4.52 mill/uL (4.70-6.10); White Blood Cell (WBC) Count 5.9 thou/uL (4.8-10.8)
[2021-05-27 05:07] LABS: Anion Gap 12 mmol/L (10-20); BUN (Urea Nitrogen) 20 mg/dL (8.4-25.7); Calc. Creatinine Clearance 105 mL/min (70-130); Calcium 8.4 mg/dL (7.8-10.44); Carbon Dioxide 23 mmol/L (23-31); Chloride 105 mmol/L (98-107); Glucose 94 mg/dL (83-110); Potassium 3.8 mmol/L (3.5-5.1); Sodium 136 mmol/L (136-145)
[2021-05-27] MEDS ORDERED: Magnesium 2 GM/50 ML 2 GM in Premix Bag 1 BAG IVPB SCH (07:00)
[2021-05-27] MEDS: Losartan 25 MG TAB PO SCH (08:47)
[2021-05-27] MEDS: Metoprolol Tartrate 25 MG TAB PO SCH (08:47)
[2021-05-27] MEDS: Dofetilide 0.125 MG CAP PO SCH (08:47)
[2021-05-27] MEDS: Apixaban 5 MG TAB PO SCH (08:47)
[2021-05-27 12:07] VITALS: BP 116/72; TEMP 97.6
== END 2021-05-27 15:30 | disposition home or self-care (01) | DRG 310 ==
LOC: 2NO 14:35
PROVIDERS: ADMIT Internal Medicine; ATTEND Internal Medicine
DX: I48.92 Unspecified atrial flutter (principal); Z20.822 Contact with and (suspected) exposure to COVID-19; I48.19 Other persistent atrial fibrillation; E83.42 Hypomagnesemia; E66.9 Obesity, unspecified; N18.2 Chronic kidney disease, stage 2 (mild); I12.9 Hypertensive chronic kidney disease with stage 1 through stage 4 chronic kidney disease, or unspecified chronic kidney disease; Z79.01 Long term (current) use of anticoagulants; Z79.899 Other long term (current) drug therapy; Z93.3 Colostomy status; Z68.31 Body mass index [BMI] 31.0-31.9, adult
CPT/HCPCS: 36415; 80048; 83735; 85025; 93005; 93010; J3475; J8499; U0003; U0005

== ENCOUNTER 2021-09-02 11:53 | Outpatient (CLI) | payer MEDICARE | END 2021-09-02 11:54 | disposition home or self-care (01) | LOC: CT 11:53 | PROVIDERS: ATTEND Psychiatry & Neurology Neurology | DX: R40.4 Transient alteration of awareness (principal) | CPT/HCPCS: 70450; 95816; 95957 ==

== ENCOUNTER 2022-04-19 08:58 | Day surgery (SDC) | payer MEDICARE ==
[2022-04-18 10:06] VITALS: BMI 32.0
[2022-04-19] MEDS ORDERED: Heparin 25,000 units/D5W 500 ML ONE (09:53)
[2022-04-19] MEDS ORDERED: Protamine Sulfate 50 MG/5 ML VIAL ONE (09:53)
[2022-04-19] MEDS ORDERED: Isoproterenol 0.2 MG/1 ML AMP ONE (09:53)
[2022-04-19] MEDS ORDERED: Heparin 10,000 UNITS/ 10 ML VIAL ONE ×2 (09:53→12:41)
[2022-04-19] MEDS ORDERED: Vecuronium 10 MG VIAL ONE (10:29)
[2022-04-19] MEDS ORDERED: Lidocaine 1% PF 5 ML VIAL ONE (10:29)
[2022-04-19] MEDS ORDERED: PHENYLEPHRINE-NS 100 MCG/ML 10 ML SYRINGE ONE (10:29)
[2022-04-19] MEDS ORDERED: NEOSTIGMINE 3 MG/3 ML SYR 3 MG/3 ML SYRINGE ONE (10:29)
[2022-04-19] MEDS ORDERED: Glycopyrrolate 0.2 MG/ML 5 ML SYRINGE ONE (10:29)
[2022-04-19] MEDS ORDERED: Ondansetron PF 4 MG/2 ML Vial ONE ×2 (10:29→15:48)
[2022-04-19] MEDS ORDERED: ePHEDrine 50 MG/ML VIAL ONE (10:29)
[2022-04-19] MEDS ORDERED: PROPOFOL 200 MG/20 ML VIAL ONE (10:29)
[2022-04-19] MEDS ORDERED: Rocuronium Bromide 10 MG/ML (10ML VIAL) ONE (10:29)
[2022-04-19] MEDS ORDERED: Furosemide 40 MG TAB PO PRN (10:43)
[2022-04-19] MEDS ORDERED: Potassium Chloride 20 MEQ TAB PO PRN (10:43)
[2022-04-19] MEDS ORDERED: Midazolam HCl 2 mg/2 ml Vial ONE (10:58)
[2022-04-19] MEDS ORDERED: Fentanyl 250 MCG/5 ML VIAL ONE (10:58)
[2022-04-19] MEDS ORDERED: Promethazine HCl 25 MG/ML VIAL ONE (16:02)
[2022-04-19] MEDS ORDERED: Sucralfate 1 GM TAB PO SCH (17:00)
[2022-04-20] MEDS ORDERED: Furosemide 40 MG TAB PO SCH (07:30)
[2022-04-20] MEDS ORDERED: Potassium Chloride 20 MEQ TAB PO SCH (07:30)
== END 2022-04-19 19:10 | disposition home or self-care (01) ==
LOC: SDC 08:58
PROVIDERS: ATTEND Internal Medicine Cardiovascular Disease
PROC: B244ZZ3 Ultrasonography of Right Heart, Intravascular (ICD-10-PCS; principal; 2022-04-19)
PROC: 02583ZZ Destruction of Conduction Mechanism, Percutaneous Approach (ICD-10-PCS; 2022-04-19)
PROC: 4A023FZ Measurement of Cardiac Rhythm, Percutaneous Approach (ICD-10-PCS; 2022-04-19)
PROC: 4A0234Z Measurement of Cardiac Electrical Activity, Percutaneous Approach (ICD-10-PCS; 2022-04-19)
PROC: 02K83ZZ Map Conduction Mechanism, Percutaneous Approach (ICD-10-PCS; 2022-04-19)
PROC: 5A2204Z Restoration of Cardiac Rhythm, Single (ICD-10-PCS; 2022-04-19)
DX: I48.19 Other persistent atrial fibrillation (principal); I48.92 Unspecified atrial flutter; Z79.01 Long term (current) use of anticoagulants; Z79.899 Other long term (current) drug therapy
CPT/HCPCS: 85347; 93005; 93623; 93655; 93656; C1732; C1759; C1760; C1769; C1884; C1894; J1644; J2250; J2405; J2550; J2704; J2720; J3010; J3490

== ENCOUNTER 2022-06-05 12:30 | Inpatient (IN) | payer MEDICARE ==
[2022-06-05] MEDS ORDERED: Acetaminophen 325 MG TAB PO PRN (15:37)
[2022-06-05 15:55] VITALS: BMI 31.8
[2022-06-05 17:27] LABS: #Eosinphils 0.1 thou/uL (0.0-0.7); #Lymphocytes 1.2 thou/uL (1.20-3.40); #Monocytes 0.6 thou/uL (0.11-0.59); #Neutrophils 5.6 thou/uL (1.40-6.50); %Basophils 0.6 % (0.0-1.0); %Eosinophils 0.9 % (0.0-10.0); %Lymphocytes 16.5 % (21.0-51.0); %Monocytes 7.3 % (0.0-10.0); %Neutrophils 74.7 % (42.0-75.0); Hemoglobin 16.1 g/dL (14.0-18.0); Mean Corpuscular HGB CONC 33.7 g/dL (32.0-36.0); Mean Corpuscular Hemoglobin 30.9 pg (27.0-31.0); Mean Corpuscular Volume 91.5 fl (78.0-98.0); Mean Platelet Volume 8.4 fL (7.4-10.4); Platelet Count 202 10x3/uL (130-400); RBC Distribution Width 12.2 % (11.5-14.5); Red Blood Cell (RBC) Count 5.22 mill/uL (4.70-6.10); White Blood Cell (WBC) Count 7.5 10x3/uL (4.8-10.8)
[2022-06-05 17:49] LABS: Anion Gap 15 mmol/L (10-20); BUN (Urea Nitrogen) 21 mg/dL (8.4-25.7); Calc. Creatinine Clearance 109 mL/min (70-130); Calcium 9.6 mg/dL (7.8-10.44); Carbon Dioxide 23 mmol/L (23-31); Chloride 106 mmol/L (98-107); Estimated GFR 76; Glucose 102 mg/dL (83-110); Sodium 140 mmol/L (136-145)
[2022-06-05] MEDS: Apixaban 5 MG TAB PO SCH (21:06)
[2022-06-05] MEDS: Dofetilide 0.125 MG CAP PO SCH (21:07)
[2022-06-05] MEDS: Metoprolol Tartrate 25 MG TAB PO SCH (21:07)
[2022-06-05] MEDS: Melatonin 3 MG TAB PO PRN (21:46)
[2022-06-06] MEDS: Metoprolol Tartrate 25 MG TAB PO SCH ×2 (09:00→21:46)
[2022-06-06] MEDS: Apixaban 5 MG TAB PO SCH ×2 (09:00→21:46)
[2022-06-06] MEDS: Lansoprazole 15 MG/5 ML (BATCHED)UDCUP PO SCH (09:00)
[2022-06-06] MEDS: Losartan 25 MG TAB PO SCH (09:00)
[2022-06-06] MEDS: Dofetilide 0.125 MG CAP PO SCH ×2 (09:01→21:49)
[2022-06-06] MEDS ORDERED: Dofetilide 0.125 MG CAP PO SCH (21:45)
[2022-06-06] MEDS: Melatonin 3 MG TAB PO PRN (21:46)
[2022-06-07] MEDS ORDERED: Dofetilide 0.125 MG CAP PO SCH (09:00)
[2022-06-07] MEDS: Lansoprazole 15 MG/5 ML (BATCHED)UDCUP PO SCH (09:06)
[2022-06-07] MEDS: Apixaban 5 MG TAB PO SCH (09:06)
[2022-06-07] MEDS: Metoprolol Tartrate 25 MG TAB PO SCH (09:06)
[2022-06-07] MEDS: Losartan 25 MG TAB PO SCH (09:06)
[2022-06-07 11:55] VITALS: BP 122/76; TEMP 97.9
== END 2022-06-07 15:09 | disposition home or self-care (01) | DRG 310 ==
LOC: 2NO 14:03
PROVIDERS: ADMIT Family Medicine; ATTEND Internal Medicine
DX: I48.91 Unspecified atrial fibrillation (principal); I10 Essential (primary) hypertension; I48.92 Unspecified atrial flutter; G47.00 Insomnia, unspecified; N20.0 Calculus of kidney; Z93.3 Colostomy status; Z79.01 Long term (current) use of anticoagulants; Z79.899 Other long term (current) drug therapy
CPT/HCPCS: 36415; 80048; 84443; 85025; 93005; 93010; J8499; U0003; U0005

== ENCOUNTER 2022-11-16 14:03 | Outpatient (CLI) | payer MEDICARE ==
[2022-11-16 15:09] LABS: Mean Corpuscular Hemoglobin 29.9 pg (27.0-33.0); Mean Corpuscular Volume 90.8 fl (81.2-95.1); Mean Platelet Volume 10.7 fl (7.4-10.4); Platelet Count 195 10x3/uL (150-450); RBC Distribution Width 13.2 % (11.5-14.5); Red Blood Cell (RBC) Count 5.01 10x6/uL (4.32-5.72); White Blood Cell (WBC) Count 6.2 10x3/uL (3.5-10.5)
[2022-11-16 15:36] LABS: Anion Gap 13 mmol/L (10-20); BUN (Urea Nitrogen) 18 mg/dL (8.4-25.7); Calc. Creatinine Clearance 0 mL/min (70-130); Calcium 9.5 mg/dL (7.8-10.44); Carbon Dioxide 26 mmol/L (23-31); Chloride 107 mmol/L (98-107); Estimated GFR 73; Glucose 110 mg/dL (83-110); Potassium 4.4 mmol/L (3.5-5.1); Sodium 142 mmol/L (136-145)
[2022-11-16 15:38] LABS: PTT 31.3 sec (22.0-33.0); Prothrombin Time 10.8 sec (9.5-12.1)
== END 2022-11-16 14:04 | disposition home or self-care (01) ==
LOC: LABBT 14:03
PROVIDERS: ATTEND Specialist
DX: Z01.812 Encounter for preprocedural laboratory examination (principal)
CPT/HCPCS: 80048; 85027; 85610; 85730

== ENCOUNTER 2022-11-20 08:15 | Day surgery (SDC) | payer MEDICARE ==
[2022-11-16 11:59] VITALS: BMI 32.0
[2022-11-20] MEDS ORDERED: Famotidine/PF 20 mg/2ml Vial ONE (09:11)
[2022-11-20] MEDS ORDERED: Heparin 10,000 UNITS/ 10 ML VIAL ONE (09:45)
[2022-11-20] MEDS ORDERED: Isoproterenol 0.2 MG/1 ML AMP ONE (09:45)
[2022-11-20] MEDS ORDERED: Protamine Sulfate 50 MG/5 ML VIAL ONE (09:45)
[2022-11-20] MEDS ORDERED: Heparin 25,000 units/D5W 0 ML ONE (09:45)
[2022-11-20] MEDS ORDERED: PHENYLEPHRINE-NS 100 MCG/ML 10 ML SYRINGE ONE (10:58)
[2022-11-20] MEDS ORDERED: PROPOFOL 200 MG/20 ML VIAL ONE (10:58)
[2022-11-20] MEDS ORDERED: Rocuronium Bromide 10 MG/ML (10ML VIAL) ONE (10:58)
[2022-11-20] MEDS ORDERED: fentaNYL 50 mcg/mL 1 mL Vial ONE (11:11)
== END 2022-11-20 19:05 | disposition home or self-care (01) ==
LOC: SDC 08:15
PROVIDERS: ATTEND Specialist
DX: I48.19 Other persistent atrial fibrillation (principal); I48.4 Atypical atrial flutter; I10 Essential (primary) hypertension; Z79.01 Long term (current) use of anticoagulants; Z79.899 Other long term (current) drug therapy; Z87.891 Personal history of nicotine dependence; Z86.79 Personal history of other diseases of the circulatory system
CPT/HCPCS: 85347 ×2; 93005; 93623; 93656; 93657; C1759; C1760; C1884; C1894 ×3; J3010; J1644; J2704; J2720; S0028